=== PATIENT | female | born 1990 | race Caucasian/White ===

== ENCOUNTER → 2018-02-07 | Outpatient (REF) | payer BC ==
[2018-02-07 13:37] LABS: APPEARANCE, URINE HAZY (CLEAR); BACTERIA, URINE AUTO NEGATIVE (NEGATIVE); BILIRUBIN, URINE AUTO NEGATIVE (NEGATIVE); BLOOD, URINE BLOOD 1+ (NEGATIVE); COLOR, URINE YELLOW (YELLOW); GLUCOSE, URINE (UA) AUTO NEGATIVE (NEGATIVE); KETONE, URINE AUTO NEGATIVE (NEGATIVE); LEUKOCYTE ESTERASE, URINE AUTO TRACE (NEGATIVE); MUCUS, URINE SMALL (NEGATIVE); NITRITE, URINE AUTO NEGATIVE (NEGATIVE); PROTEIN, URINE AUTO NEGATIVE (NEGATIVE); RBC, URINE AUTO 10 /HPF (0-3); SPECIFIC GRAVITY URINE AUTO 1.019 (1.002-1.035); SQUAMOUS EPITHELIAL CELL UR AU 1 /HPF (0-6); UROBILINOGEN, URINE AUTO 0.2 mg/dL (0.0-2.0); WBC, URINE AUTO 21 /HPF (0-3)
== END ==
LOC: M LAB REF 12:52
DX: N39.0 Urinary tract infection, site not specified (principal)
CPT/HCPCS: 81001

== ENCOUNTER → 2018-03-10 | Outpatient (REF) | payer BC ==
[2018-03-10 15:57] LABS: CHLAMYDIA DNA AMPLIFICATION NEGATIVE (NEGATIVE); GC DNA AMPLIFICATION NEGATIVE (NEGATIVE)
[2018-03-18 14:10] LABS: HPV LOW VOL RFLX Negative (Negative)
== END ==
LOC: M SFHCWAGY 09:05
DX: Z12.4 Encounter for screening for malignant neoplasm of cervix (principal); Z11.3 Encounter for screening for infections with a predominantly sexual mode of transmission; R87.610 Atypical squamous cells of undetermined significance on cytologic smear of cervix (ASC-US)

== ENCOUNTER 2018-04-07 13:51 | Emergency (ER) | payer BC ==
[2018-04-07] MEDS: GI COCKTAIL 50ML BTL(HYOSCYAMINE/MAALOX/LIDOCAINE VISCOUS)(1:3:1) PO (16:32)
[2018-04-07] MEDS: PANTOPRAZOLE 40MG INJ (PROTONIX) (C9113) IV (17:10)
[2018-04-07] MEDS: NS 1,000 ML IV (17:10)
[2018-04-07] MEDS: KETOROLAC 30 MG/ML VIAL (J1885) IV (18:00)
[2018-04-07 19:12] LABS: BASO % 0.3 % (0.0-1.0); EOS % 0.1 % (0.0-3.0); HEMATOCRIT 35.6 % (36.0-47.0); HEMOGLOBIN 11.9 g/dl (12.0-15.5); IMMATURE GRANULOCYTE % 0.5 % (0-3.0); LYMPH # 1.6 10^3/uL (1.5-6.5); MEAN CORPUSCULAR HEMOGLOBIN 31.2 pg (27.0-33.0); MEAN CORPUSCULAR HGB CONC 33.4 g/dl (32.0-36.5); MEAN CORPUSCULAR VOLUME 93.2 fl (80.0-96.0); MONO # 0.7 10^3/uL (0.0-0.8); MONO % 6.7 % (0.0-5.0); NEUTROPHILS # 8.7 10^3/uL (1.8-7.7); NEUTROPHILS % 78.4 % (36.0-66.0); PLATELET COUNT, AUTOMATED 257 10^3/uL (150-450); RED BLOOD COUNT 3.82 10^6/uL (4.00-5.40); RED CELL DISTRIBUTION WIDTH 11.9 % (11.5-14.5); WHITE BLOOD COUNT 11.1 10^3/uL (4.0-10.0)
[2018-04-07 19:47] LABS: CONTROL LINE HCG INT CTR LINE PRESENT; HCG, SERUM QUALITATIVE NEGATIVE (NEGATIVE)
[2018-04-07 19:55] LABS: ALBUMIN/GLOBULIN RATIO 0.83 (1.00-1.93); ALKALINE PHOSPHATASE 57 U/L (45-117); ALT/SGPT 19 U/L (12-78); ANION GAP 11 MEQ/L (8-16); AST/SGOT 9 U/L (7-37); BILIRUBIN,TOTAL 0.5 MG/DL (0.2-1.0); BLOOD UREA NITROGEN 9 MG/DL (7-18); CALCIUM LEVEL 8.3 MG/DL (8.5-10.1); CARBON DIOXIDE LEVEL 25 MEQ/L (21-32); CHLORIDE LEVEL 107 MEQ/L (98-107); GLOMERULAR FILTRATION RATE > 60.0 (>60); GLUCOSE, FASTING 80 MG/DL (70-100); LIPASE 130 U/L (73-393); POTASSIUM SERUM 3.8 MEQ/L (3.5-5.1); SODIUM LEVEL 143 MEQ/L (136-145); TOTAL PROTEIN 6.6 GM/DL (6.4-8.2)
== END 2018-04-07 20:27 | disposition home or self-care (01) ==
LOC: M ED 13:51
DX: R10.13 Epigastric pain (principal); K21.9 Gastro-esophageal reflux disease without esophagitis; Z87.442 Personal history of urinary calculi; Z87.440 Personal history of urinary (tract) infections; J45.909 Unspecified asthma, uncomplicated; R51 Headache; Z87.42 Personal history of other diseases of the female genital tract; Z79.899 Other long term (current) drug therapy; Z79.3 Long term (current) use of hormonal contraceptives
CPT/HCPCS: C9113

== ENCOUNTER 2018-05-22 12:30 | Day surgery (SDC) | payer BC ==
[~2018-05-22 12:30] MED LIST: LIDOCAINE 2% INJ 100 MG/5 ML SDV (FOR ANES.) As Ordered; PROPOFOL 200 MG/20 ML VIAL As Ordered
[2018-05-22] MEDS: NS 1,000 ML IV (13:00)
== END 2018-05-22 14:45 | disposition home or self-care (01) ==
LOC: M OPP 12:30
DX: R10.13 Epigastric pain (principal); K22.8 Other specified diseases of esophagus; K21.0 Gastro-esophageal reflux disease with esophagitis; K29.70 Gastritis, unspecified, without bleeding; M94.0 Chondrocostal junction syndrome [Tietze]; D64.9 Anemia, unspecified; F32.9 Major depressive disorder, single episode, unspecified; F41.9 Anxiety disorder, unspecified; K57.30 Diverticulosis of large intestine without perforation or abscess without bleeding; R12 Heartburn; J45.909 Unspecified asthma, uncomplicated; N80.9 Endometriosis, unspecified; Z87.442 Personal history of urinary calculi; Z79.899 Other long term (current) drug therapy
CPT/HCPCS: 43239

== ENCOUNTER → 2018-06-01 | Outpatient (CLI) | payer BC ==
[2018-06-01 10:21] LABS: BASO % 0.6 % (0.0-1.0); EOS % 0.8 % (0.0-3.0); HEMOGLOBIN 13.4 g/dl (12.0-15.5); IMMATURE GRANULOCYTE % 0.2 % (0-3.0); LYMPH # 1.7 10^3/uL (1.5-4.5); LYMPH % 31.2 % (24.0-44.0); MEAN CORPUSCULAR HEMOGLOBIN 30.4 pg (27.0-33.0); MEAN CORPUSCULAR HGB CONC 33.5 g/dl (32.0-36.5); MEAN CORPUSCULAR VOLUME 90.7 fl (80.0-96.0); MONO # 0.4 10^3/uL (0.0-0.8); MONO % 7.1 % (0.0-5.0); NEUTROPHILS # 3.2 10^3/uL (1.8-7.7); NEUTROPHILS % 60.1 % (36.0-66.0); PLATELET COUNT, AUTOMATED 277 10^3/uL (150-450); RED BLOOD COUNT 4.41 10^6/uL (4.00-5.40); RED CELL DISTRIBUTION WIDTH 11.4 % (11.5-14.5); WHITE BLOOD COUNT 5.3 10^3/uL (4.0-10.0)
[2018-06-01 10:49] LABS: ANION GAP 8 MEQ/L (8-16); BLOOD UREA NITROGEN 9 MG/DL (7-18); CALCIUM LEVEL 9.3 MG/DL (8.5-10.1); CARBON DIOXIDE LEVEL 28 MEQ/L (21-32); CHLORIDE LEVEL 107 MEQ/L (98-107); CREATININE FOR GFR 0.79 MG/DL (0.55-1.30); FREE T4 1.13 NG/DL (0.76-1.46); GLOMERULAR FILTRATION RATE > 60.0 (>60); GLUCOSE, FASTING 78 MG/DL (70-100); POTASSIUM SERUM 4.2 MEQ/L (3.5-5.1); SODIUM LEVEL 143 MEQ/L (136-145)
== END ==
LOC: M LAB 09:45
DX: F33.9 Major depressive disorder, recurrent, unspecified (principal)
CPT/HCPCS: 84443

== ENCOUNTER → 2018-10-16 | Outpatient (CLI) | payer BC ==
[~2018-10-16] MED LIST changes: +CENTCHW4 PO; +CIPR500T4 OR; +COLA100C2 OR; +FLAG500T OR; -LIDOCAINE 2% INJ 100 MG/5 ML SDV (FOR ANES.) As Ordered; +NEXIUM PO; +NORCOTAB PO; +NUVAMIS2 VA; +OMEP20CA3 PO; +OMEP40CA2 PO; +PROBCAP4 PO; -PROPOFOL 200 MG/20 ML VIAL As Ordered; +VICO5TAB OR; +WELLTAB38 PO; +WELLTAB40 PO; +YAZ3TAB2 OR
--- NOTE | 2018-10-16 17:43 | REP ---
Clinical: Pain. Technique: AP, lateral, bilateral oblique views of the right foot. Findings: No acute fracture or dislocation. Skeletal structures, joint spaces, and surrounding soft tissues are relatively normal for age. No overt osteoarthritic changes. No subcutaneous emphysema. No foreign body. Impression: Age-appropriate right foot radiographs. Electronically Signed by David Young MD 10/16/2018 05:35 P
== END ==
LOC: M RAD 17:04
PROVIDERS: ATTEND Physician Assistant
DX: M79.671 Pain in right foot (principal)

== ENCOUNTER → 2019-03-16 | Outpatient (REF) | payer BC ==
[~2019-03-16] MED LIST changes: +HYDR-3715 PO; -NORCOTAB PO; -OMEP20CA3 PO; +OMEP20CA4 PO
[2019-03-16 14:42] LABS: CHLAMYDIA DNA AMPLIFICATION NEGATIVE (NEGATIVE); GC DNA AMPLIFICATION NEGATIVE (NEGATIVE)
== END ==
LOC: M SFHCWAGY 09:28
PROVIDERS: ATTEND Family Medicine
DX: Z12.4 Encounter for screening for malignant neoplasm of cervix (principal); Z11.3 Encounter for screening for infections with a predominantly sexual mode of transmission

== ENCOUNTER → 2019-05-03 | Outpatient (CLI) | payer BC ==
[2019-05-03 09:30] LABS: BASO % 0.5 % (0.0-1.0); EOS # 0.1 10^3/uL (0.0-0.5); EOS % 1.7 % (0.0-3.0); HEMATOCRIT 37.2 % (36.0-47.0); HEMOGLOBIN 12.2 g/dl (12.0-15.5); LYMPH % 31.3 % (24.0-44.0); MEAN CORPUSCULAR HGB CONC 32.8 g/dl (32.0-36.5); MEAN CORPUSCULAR VOLUME 91.6 fl (80.0-96.0); MONO # 0.5 10^3/uL (0.0-0.8); MONO % 8.3 % (0.0-5.0); NEUTROPHILS # 3.7 10^3/uL (1.5-8.5); NEUTROPHILS % 57.9 % (36.0-66.0); PLATELET COUNT, AUTOMATED 269 10^3/uL (150-450); RED BLOOD COUNT 4.06 10^6/uL (4.00-5.40); WHITE BLOOD COUNT 6.4 10^3/uL (4.0-10.0)
[2019-05-03 10:02] LABS: PERCENT SATURATION 21.9 % (13.2-45.0)
--- NOTE | 2019-05-03 11:52 | REP ---
PELVIC ULTRASOUND: Real-time sonographic evaluation of the pelvis performed utilizing transabdominal and endovaginal technique. Bladder measures 12.7 x 7.9 x 9.7 cm. The uterus measures 9.2 x 4.9 x 5.2 cm. Endometrial thickness is 12 mm. There is no endometrial fluid collection. Ovaries are normal in size and echotexture, right ovary measuring 2.1 x 1.6 x 1.2 cm and left ovary 3.2 x 1.2 x 2.4 cm. There is no adnexal mass or free fluid. There is no torsion of either ovary. There are a few subcentimeter nabothian cysts in the region of the cervix. IMPRESSION: Essentially negative pelvic ultrasound. Electronically Signed by Remington Zepeda MD 05/03/2019 02:07 P
[2019-05-10 10:30] LABS: CALPROTECTIN STOOL 119 ug/g (0-120)
== END ==
LOC: M RAD 08:43
PROVIDERS: ATTEND Internal Medicine Gastroenterology
DX: K57.32 Diverticulitis of large intestine without perforation or abscess without bleeding (principal)

== ENCOUNTER 2019-06-07 18:05 | Emergency (ER) | payer BC ==
[~2019-06-07] VITALS: Ht 149.9 cm; Wt 70.0 kg
[~2019-06-07 18:05] MED LIST changes: -OMEP40CA2 PO; +OMEP40CA97 PO
--- NOTE | 2019-06-07 18:39 | REPVR ---
PROCEDURE INFORMATION: Exam: CT Head Without Contrast Exam date and time: 06/07/2019 6:16 PM Clinical history: 29 years old, female; Visual disturbance; Additional info: CVA - nursing interventions must not delay CT TECHNIQUE: Imaging protocol: Computed tomography of the head without contrast. Radiation optimization: All CT scans at this facility use at least one of these dose optimization techniques: automated exposure control; mA and/or kV adjustment per patient size (includes targeted exams where dose is matched to clinical indication); or iterative reconstruction. Other technique: STROKE PROTOCOL was implemented. COMPARISON: No relevant prior studies available. FINDINGS: Brain: The white-panda differentiation is preserved demonstrating no acute territorial type infarct. No acute intracranial hemorrhage is seen. No intracranial mass effect. Midline shift: There is no midline shift. Ventricles: No ventriculomegaly. Bones/joints: The calvarium demonstrates no evidence for a depressed fracture. Sinuses: Mucous retention cysts or polyps within the right sphenoid sinus, with mild mucosal thickening of the left sphenoid sinus. Mastoid air cells: No mastoid effusion. Soft tissues: Unremarkable. IMPRESSION: 1. No acute intracranial abnormality. 2. Paranasal sinus disease. 3. If further evaluation is clinically indicated, an MRI of the brain is recommended. ASSESSMENT: [place] Stroke Program Early CT Score (ASPECTS) = 10 Electronically signed by: Eligio Valdovinos On 06/07/2019 18:38:47 PM
[2019-06-07 18:54] LABS: BASO % 0.4 % (0.0-1.0); EOS # 0.1 10^3/uL (0.0-0.5); EOS % 0.8 % (0.0-3.0); HEMOGLOBIN 12.9 g/dl (12.0-15.5); LYMPH # 3.5 10^3/uL (1.5-5.0); LYMPH % 33.6 % (24.0-44.0); MEAN CORPUSCULAR HEMOGLOBIN 31.2 pg (27.0-33.0); MEAN CORPUSCULAR HGB CONC 33.9 g/dl (32.0-36.5); MEAN CORPUSCULAR VOLUME 91.8 fl (80.0-96.0); MONO # 0.9 10^3/uL (0.0-0.8); MONO % 8.6 % (0.0-5.0); NEUTROPHILS # 5.9 10^3/uL (1.5-8.5); NEUTROPHILS % 56.2 % (36.0-66.0); PLATELET COUNT, AUTOMATED 292 10^3/uL (150-450); RED BLOOD COUNT 4.14 10^6/uL (4.00-5.40); WHITE BLOOD COUNT 10.5 10^3/uL (4.0-10.0)
--- NOTE | 2019-06-07 19:04 | REP ---
Single view chest: Indication: Stroke. Comparison: 10/24/2010. Findings: The lungs are clear. There is no pleural effusion or pneumothorax. The cardiomediastinal silhouette is unremarkable. Impression: No acute cardiopulmonary process. Electronically Signed by John Duarte DO 06/07/2019 06:55 P
[2019-06-07 19:18] LABS: PARTIAL THROMBOPLASTIN TIME 21.7 SECONDS (25.0-38.4); PROTHROMBIN TIME 12.9 SECONDS (11.8-14.0)
[2019-06-07 19:23] LABS: BLOOD UREA NITROGEN 11 MG/DL (7-18); CALCIUM LEVEL 8.2 MG/DL (8.5-10.1); CARBON DIOXIDE LEVEL 28 MEQ/L (21-32); CHLORIDE LEVEL 106 MEQ/L (98-107); CPK CREATINE PHOSPHOKINASE 335 U/L (26-192); GLOMERULAR FILTRATION RATE > 60.0 (>60); GLUCOSE, FASTING 83 MG/DL (70-100); SODIUM LEVEL 140 MEQ/L (136-145); TROPONIN I < 0.02 NG/ML (< 0.10)
[2019-06-07 20:17] LABS: APPEARANCE, URINE CLEAR (CLEAR); BACTERIA, URINE AUTO NEGATIVE (NEGATIVE); BILIRUBIN, URINE AUTO NEGATIVE (NEGATIVE); BLOOD, URINE BLOOD 1+ (NEGATIVE); COLOR, URINE STRAW (YELLOW); GLUCOSE, URINE (UA) AUTO NEGATIVE (NEGATIVE); KETONE, URINE AUTO NEGATIVE (NEGATIVE); LEUKOCYTE ESTERASE, URINE AUTO NEGATIVE (NEGATIVE); MUCUS, URINE SMALL (NEGATIVE); NITRITE, URINE AUTO NEGATIVE (NEGATIVE); PROTEIN, URINE AUTO NEGATIVE (NEGATIVE); RBC, URINE AUTO 3 /HPF (0-3); SPECIFIC GRAVITY URINE AUTO 1.009 (1.002-1.035); SQUAMOUS EPITHELIAL CELL UR AU 1 /HPF (0-6); UROBILINOGEN, URINE AUTO 0.2 mg/dL (0.0-2.0); WBC, URINE AUTO 2 /HPF (0-3)
[2019-06-07 21:01] VITALS: BP 140/91
[2019-06-07] MEDS ORDERED: BUPR150T3 PO (21:24)
[2019-06-07] MEDS ORDERED: POTASSIUM CHLORIDE 10 MEQ SR TABLET PO ONE (21:30)
--- NOTE | 2019-06-08 19:44 | ECGEPIP ---
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
== END 2019-06-07 21:43 | disposition home or self-care (01) ==
LOC: M ED 18:05
DX: I16.0 Hypertensive urgency (principal)

== ENCOUNTER → 2019-07-30 | Outpatient (CLI) | payer BC ==
[~2019-07-30] MED LIST changes: +BUPR150T3 PO; +OMEP-172 PO; -OMEP20CA4 PO
--- NOTE | 2019-07-30 12:05 | REP ---
Left elbow series: Four views. History: Pain in the left elbow. Findings: Four views of the left elbow demonstrate normal bones, joints, and soft tissues. No evidence of arthropathy or erosive change. No evidence of joint effusion. Impression: Negative radiographs of the left elbow. Electronically Signed by Cortez Choi MD 07/30/2019 11:57 A
--- NOTE | 2019-07-30 12:20 | REP ---
Left humerus: Two views. History: Pain at the left elbow. Findings: AP and lateral views of the left arm demonstrate normal bones, joints and soft tissues. No fracture subluxation or arthropathy is seen. Impression : Negative radiographs of the left upper quadrant. Electronically Signed by Cortez Choi MD 07/30/2019 12:11 P
== END ==
LOC: M RAD 10:20
PROVIDERS: ATTEND Physician Assistant
DX: M25.522 Pain in left elbow (principal)

== ENCOUNTER → 2019-08-16 | Outpatient (CLI) | payer BC ==
--- NOTE | 2019-08-16 09:15 | REP ---
Clinical: Left upper extremity swelling and palpable mass. Technique: Real time panda scale ultrasound examination using linear high frequency and curved array transducers. Findings: Directed ultrasound examination at the left antecubital fossa in the region of maximal pain and suspected mass demonstrates no obvious abnormality. No fluid collection. No mass lesion. No obvious adenopathy. Subcutaneous tissues and musculature appear relatively normal. Impression: No obvious acute pathology in the region of the antecubital fossa. Electronically Signed by David Young MD 08/16/2019 09:06 A
== END ==
LOC: M RAD 08:28
PROVIDERS: ATTEND Physician Assistant
DX: R22.32 Localized swelling, mass and lump, left upper limb (principal)

== ENCOUNTER → 2019-08-21 | Outpatient (RCR) | payer BC | LOC: M OT 08-07 08:59 | PROVIDERS: ATTEND Physician Assistant | DX: M25.522 Pain in left elbow (principal) ==

== ENCOUNTER 2019-08-23 08:35 | Outpatient (RCR) | payer BC ==
[~2019-08-23 08:35] MED LIST changes: -OMEP-172 PO; +OMEP1CAP73 PO
== END 2019-09-21 ==
LOC: M OT 08:35
PROVIDERS: ATTEND Physician Assistant
DX: M25.522 Pain in left elbow (principal)

== ENCOUNTER → 2019-08-29 | Outpatient (CLI) | payer BC ==
[~2019-08-29] MED LIST changes: +METHACHOLINE KIT (J7674) INH ONE; +OMEP-172 PO; -OMEP1CAP73 PO
--- NOTE | 2019-08-29 15:51 | PFTRPT ---
Site: [facility], [address] [place], [address] ID: [id number] Name: MCKAYLA MARY Visit Date: 08/29/2019 Second ID: [id number] Referring Doctor: Gurwinder Friedman MD Reviewing Doctor: Gurwinder Friedman MD Certified Personal Chef: Elsy Alford Age: 29 : 1990 Sex: Female Race: Height: 59.00 Inches Weight: 158.00 Lbs BSA: 1.67 Order IDs: [id number] Requested Test(s): <RESP-PFT.BROCHOPROV> Diagnosis: R05 of albuterol for postbronchodilator. Review Status: Not Reviewed Pre-Bronch Post-Bronch Pred Actual %Pred Actual %Chng SPIROMETRY FVC (L) 3.18 3.41 107 3.62 6 FEV1 (L) 2.71 2.94 108 2.91 -1 FEV1/FVC (%) 84 86 102 80 -6 FEF 25% (L/sec) 5.14 6.34 123 6.15 -3 FEF 50% (L/sec) 4.46 4.12 92 3.77 -8 FEF 75% (L/sec) 1.87 1.54 82 1.46 -5 FEF 25-75% (L/sec) 3.14 3.44 109 3.15 -8 FEF Max (L/sec) 6.27 6.85 109 6.59 -3 FIVC (L) 3.32 3.38 1 FIF 50% (L/sec) 3.94 4.03 102 3.49 -13 FIF Max (L/sec) 4.48 4.28 -4 Expiratory Time (sec) 8.01 7.19 -10 Back Extrap Vol (L) 0.08 0.08 -3 Time To FEFmax (sec) 0.072 0.076 5
== END ==
LOC: M CARPUL 14:47
PROVIDERS: ATTEND Internal Medicine Pulmonary Disease
DX: R05 Cough (principal)
CPT/HCPCS: 94070; J7674

== ENCOUNTER → 2019-09-14 | Outpatient (CLI) | payer BC ==
[~2019-09-14] MED LIST changes: -METHACHOLINE KIT (J7674) INH ONE; -OMEP-172 PO; +OMEP1CAP73 PO; +PROHANCE 279.3MG/ML 15ML VIAL (A9576) As Ordered ONE
--- NOTE | 2019-09-14 19:23 | REP ---
MRI left elbow without contrast: History: Swelling mass or lump in the medial side of the antecubital fossa with intermittent tenderness and regional numbness. Comparison radiographs July 30, 2019. Technique: Axial, coronal and sagittal imaging planes utilized. T1 and T2-weighted scans were obtained with and without fat saturation. MRI findings: Cortical and medullary bone signal intensity are normal in the distal humerus, proximal radius, and proximal ulna. Triceps, biceps, and brachialis tendons are intact. Medial and lateral collateral ligaments at the elbow are intact. No evidence of epicondylitis or periarticular bursal fluid collection is seen. Normal vessels are seen coursing through the antecubital subcutaneous fat in the region where the patient describes the fullness. There is no evidence of encapsulated lipoma. No vascular abnormality is seen. No soft tissue mass is seen. Skeletal muscle is normal in coarse caliber and signal intensity. Impression: Normal MRI study of the left elbow. Electronically Signed by Cortez Choi MD 09/14/2019 09:13 P
== END ==
LOC: M RAD 16:38
PROVIDERS: ATTEND Orthopaedic Surgery
DX: R22.32 Localized swelling, mass and lump, left upper limb (principal)
CPT/HCPCS: 73223; A9576

== ENCOUNTER → 2019-09-17 | Outpatient (CLI) | payer BC ==
[~2019-09-17] MED LIST changes: -PROHANCE 279.3MG/ML 15ML VIAL (A9576) As Ordered ONE
[2019-09-17 14:19] LABS: ALBUMIN 3.7 GM/DL (3.2-5.2); BLOOD UREA NITROGEN 11 MG/DL (7-18); CALCIUM LEVEL 9.5 MG/DL (8.5-10.1); CARBON DIOXIDE LEVEL 27 MEQ/L (21-32); CHLORIDE LEVEL 106 MEQ/L (98-107); CREATININE FOR GFR 0.74 MG/DL (0.55-1.30); GLOMERULAR FILTRATION RATE > 60.0 (>60); GLUCOSE, FASTING 82 MG/DL (70-100); MAGNESIUM LEVEL 2.3 MG/DL (1.8-2.4); PHOSPHORUS LEVEL 2.9 MG/DL (2.5-4.9); POTASSIUM SERUM 3.8 MEQ/L (3.5-5.1); SODIUM LEVEL 140 MEQ/L (136-145)
== END ==
LOC: M LAB 13:11
PROVIDERS: ATTEND Internal Medicine Cardiovascular Disease
DX: I10 Essential (primary) hypertension (principal)

== ENCOUNTER → 2019-09-18 | Outpatient (REF) | payer BC | LOC: M LAB REF 09:07 | PROVIDERS: ATTEND Internal Medicine Cardiovascular Disease | DX: I10 Essential (primary) hypertension (principal) ==

== ENCOUNTER → 2019-09-18 | Outpatient (CLI) | payer BC ==
--- NOTE | 2019-09-19 03:54 | REP ---
Clinical: Primary hypertension. Technique: Zepeda scale and color Doppler evaluation of the kidneys and renal vasculature using curved array transducer. Findings: The kidneys are essentially normal in contour size and echogenicity and reniform shape without hydronephrosis, nephrolithiasis, cystic or renal mass lesion. Right kidney measures 11.9 x 5.8 x 4.7 cm . Left kidney measures 10.6 x 4.8 x 6.3 cm . Bladder is incompletely distended and grossly normal by current evaluation. Color Doppler evaluation of the renal vasculature demonstrates normal arterial wave patterns, velocities, renal aortic ratios, resistive indices and the acceleration time. No sonographic evidence for renal arterial stenosis noted. Renal vein is patent. Right Kidney: Peak arterial velocity: 87.6 cm/sec . Renal aortic ratio: 0.9 . Resistive indices: 0.54 - 0.63 . Acceleration times: 0.04 - 0.05 . Left kidney: Peak arterial velocity: 90.0 cm/sec . Renal aortic ratio: 1.0 . Resistive indices: 0.56 - 0.62 . Acceleration times: 0.04 - 0.05 . Impression: Normal renal ultrasound. No evidence for renal arterial stenosis. Electronically Signed by David Young MD 09/19/2019 03:46 A
== END ==
LOC: M RAD 06:50
PROVIDERS: ATTEND Internal Medicine Cardiovascular Disease
DX: I10 Essential (primary) hypertension (principal)

== ENCOUNTER → 2020-06-24 | Outpatient (CLI) | payer BC ==
[2020-06-24 09:03] LABS: BASO % 0.4 % (0.0-1.0); EOS # 0.1 10^3/uL (0.0-0.5); EOS % 1.5 % (0.0-3.0); HEMATOCRIT 38.9 % (36.0-47.0); HEMOGLOBIN 12.5 g/dl (12.0-15.5); LYMPH # 1.7 10^3/uL (1.5-5.0); LYMPH % 31.2 % (24.0-44.0); MEAN CORPUSCULAR HEMOGLOBIN 29.3 pg (27.0-33.0); MEAN CORPUSCULAR HGB CONC 32.1 g/dl (32.0-36.5); MEAN CORPUSCULAR VOLUME 91.1 fl (80.0-96.0); MONO # 0.4 10^3/uL (0.0-0.8); MONO % 6.5 % (0.0-5.0); NEUTROPHILS # 3.3 10^3/uL (1.5-8.5); PLATELET COUNT, AUTOMATED 283 10^3/uL (150-450); RED BLOOD COUNT 4.27 10^6/uL (4.00-5.40); WHITE BLOOD COUNT 5.5 10^3/uL (4.0-10.0)
[2020-06-24 09:36] LABS: ALBUMIN 3.3 GM/DL (3.2-5.2); ALT/SGPT 23 U/L (12-78); BILIRUBIN,TOTAL 0.2 MG/DL (0.2-1.0); BLOOD UREA NITROGEN 8 MG/DL (7-18); CALCIUM LEVEL 9.1 MG/DL (8.5-10.1); CARBON DIOXIDE LEVEL 28 MEQ/L (21-32); CHLORIDE LEVEL 108 MEQ/L (98-107); CREATININE FOR GFR 0.86 MG/DL (0.55-1.30); GLOMERULAR FILTRATION RATE > 60.0 (>60); GLUCOSE, FASTING 93 MG/DL (70-100); POTASSIUM SERUM 3.9 MEQ/L (3.5-5.1); SODIUM LEVEL 140 MEQ/L (136-145); TOTAL PROTEIN 6.9 GM/DL (6.4-8.2)
== END ==
LOC: M LAB 08:30
PROVIDERS: ATTEND Family Medicine
DX: I10 Essential (primary) hypertension (principal)